=== PATIENT | male | born 1970 ===

== ENCOUNTER 2021-02-26 13:36 | Emergency (ER) | payer OTHER ==
[~2021-02-26] VITALS: Ht 185.4 cm; Wt 88.5 kg
[2021-02-26] MEDS ORDERED: CLEOCIN HCL300 MG (14:39)
== END 2021-02-26 17:11 | disposition home or self-care (01) ==
LOC: ER 13:36
DX: A38.9 Scarlet fever, uncomplicated (principal); R21 Rash and other nonspecific skin eruption